=== PATIENT | female | born 1990 | race Caucasian/White ===

== ENCOUNTER 2016-03-25 13:26 | Emergency (ER) | payer OTHER ==
[2016-03-25 13:56] VITALS: BP 104/65
--- NOTE | 2016-03-25 13:58 | ER Document Report ---
ED Medical Screen (RME) - General Stated Complaint: SORE THROAT Notes: patient c/o sore throat for three days, still has her tonsils and states she has a h/o strep. dysphagia but tolerating PO I have greeted and performed a rapid initial assessment of this patient. A comprehensive ED assessment and evaluation of the patient, analysis of test results and completion of the medical decision making process will be conducted by additional ED providers. Physical Exam - Vital signs Vitals: Temp Pulse BP Pulse Ox 98.5 F 100 104/65 97 03/25/16 13:44 03/25/16 13:44 03/25/16 13:44 03/25/16 13:44 Course - Vital Signs Vital signs: Temp Pulse Resp BP Pulse Ox 98.5 F 100 104/65 97 03/25/16 13:44 03/25/16 13:44 03/25/16 13:44 03/25/16 13:44
--- NOTE | 2016-03-25 15:54 | ER Document Report ---
[id number], Parent TRAVEL OUTSIDE OF THE [place] IN LAST 30 DAYS: No - HPI Patient complains to provider of: sore throat Onset: Other - 3 days ago Onset/Duration: Sudden Quality of pain: Stabbing Associated symptoms: None. denies: Fever - General Chief Complaint: Sore Throat Stated Complaint: SORE THROAT Notes: Patient is a 25-year-old female presenting to the emergency department accompanied by her mother and daughter. Patient complains of sore throat onset 3 days ago progressively worsening. Patient states that she has been taking DayQuil, 800 mg of Motrin twice daily, and Tylenol. Patient has a history of strep throat, but that was 2 years ago. Patient denies fever, acid reflux, or any other symptoms at this time. (CARLO NICOLE) Past Medical History - General Information source: Patient - Social History Smoking Status: Never Smoker Chew tobacco use (# tins/day): No Frequency of alcohol use: None Drug Abuse: None Family History: Reviewed & Not Pertinent Patient has suicidal ideation: No Patient has homicidal ideation: No Renal/ Medical History: Denies: Hx Peritoneal Dialysis Review of Systems - Review of Systems Constitutional: No symptoms reported EENT: See HPI, Throat pain Cardiovascular: No symptoms reported Respiratory: No symptoms reported Gastrointestinal: No symptoms reported Genitourinary: No symptoms reported Female Genitourinary: No symptoms reported Musculoskeletal: No symptoms reported Skin: No symptoms reported Hematologic/Lymphatic: No symptoms reported Neurological/Psychological: No symptoms reported Physical Exam - Vital signs Vitals: Temp Pulse BP Pulse Ox 98.5 F 100 104/65 97 03/25/16 13:44 03/25/16 13:44 03/25/16 13:44 03/25/16 13:44 (CARLO NICOLE) (DWAYNE PUCKETT) - Notes Notes: GENERAL: Alert, interacts well. No acute distress. HEAD: Normocephalic, atraumatic. EYES: Pupils equal, round, and reactive to light. Extraocular movements intact. ENT: Oral mucosa moist, pharynx mildly erythematous, no swelling, exudates, or abscesses. NECK: Full range of motion. Supple. LUNGS: Clear to auscultation bilaterally, no wheezes, rales, or rhonchi. No respiratory distress. HEART: Regular rate and rhythm. No murmurs, gallops, or rubs. ABDOMEN: Soft, non-tender. Non-distended. EXTREMITIES: Moves all 4 extremities spontaneously. No edema, radial and dorsalis pedis pulses 2/4 bilaterally. NEUROLOGICAL: Alert and oriented x3. Normal speech. PSYCH: Normal affect, normal mood. SKIN: Warm, dry, normal turgor. No rashes or lesions noted. (CARLO NICOLE) Course - Re-evaluation Re-evalutation: 03/25/16 16:16 I personally performed the services described in the documentation, reviewed and edited the documentation which was dictated to my scribe in my presence, and it accurately records my words and actions. She presents emergency, to three-day history of sore throat. She says it hurts to swallow no difficulty breathing trismus stridor or drooling she is well- appearing nontoxic start that is negative posterior pharynx is red without lesions sores exudate or abscess. Trachea midline neck is supple lungs are clear. Recommend Tylenol every 4 hours Motrin every 6-8 hours ice liquids to call or throat we did do a strep culture if that's positive a total recall her back otherwise supportive care follow primary care physician to 3 days (DWAYNE PUCKETT) - Vital Signs Vital signs: Temp Pulse Resp BP Pulse Ox 98.5 F 100 104/65 97 03/25/16 13:44 03/25/16 13:44 03/25/16 13:44 03/25/16 13:44 (CARLO NICOLE) (DWAYNE PUCKETT) Discharge - Discharge Clinical Impression: Pharyngitis Qualifiers: Pharyngitis/tonsillitis etiology: unspecified etiology Qualified Code(s): J02.9 - Acute pharyngitis, unspecified Condition: Stable Disposition: HOME, SELF-CARE Instructions: Sore Throat ([facility]) Additional Instructions: Sore Throat Sore throats may be caused by viruses, bacteria, or fungi. Most are due to a virus, and must get better on their own. Bacterial sore throats, particularly those due to "strep," need treatment with antibiotics. If an antibiotic is prescribed, be sure to take the medication for a full 10 days. Failure to take the antibiotic can result in complications such as rheumatic fever. Sometimes, an injection of antibiotics is given instead of pills or liquid. This single "shot" is equal in effectiveness to the oral medication. To relieve symptoms, take acetaminophen for pain. Sip clear liquids frequently, or eat popsicles or ice chips. Anesthetic sprays or lozenges may help. Make sure the air in the room is not too dry. Avoid using decongestants or antihistamines. Call the doctor if there is no improvement in two days, or if you have difficulty breathing, increasing throat pain, high fever, rash, or frequent vomiting. Please use Tylenol every 4 Motrin every 6-8 follow-up with Dr. Christianson physician in 2-3 days return for increasing worsening or new symptoms Scribe Documentation - Scribe Written by Dell:: Carlo Nicole 03/25/2016 192 acting as scribe for :: Seamus
== END 2016-03-25 16:29 | disposition home or self-care (01) ==
LOC: ER 13:26
DX: J02.9 Acute pharyngitis, unspecified (principal)
CPT/HCPCS: 87070; 87880; 99283

== ENCOUNTER 2016-10-02 17:21 | Emergency (ER) | payer OTHER ==
[2016-10-02] MEDS ORDERED: ONDANSETRON 4 MG TAB.RAPDIS SL ONE (17:30)
[2016-10-02] MEDS ORDERED: OXYCODONE-ACETAMINOPHEN 5-325 MG TABLET PO ONE ×2 (17:30→20:59)
--- NOTE | 2016-10-02 17:32 | ER Document Report ---
ED Medical Screen (RME) - General Chief Complaint: Abdominal Pain Stated Complaint: ABDOMINAL PAIN Time Seen by Provider: 10/02/16 17:28 Mode of Arrival: Ambulatory Information source: Patient TRAVEL OUTSIDE OF THE [place] IN LAST 30 DAYS: No - HPI Patient complains to provider of: Abdominal pain/pelvic pain Onset: Last week Associated Symptoms: Nausea Notes: 10/02/16 17:32 Patient is a 26-year-old female presenting to the emergency room complaining of right lower quadrant/right pelvic pain is been going on for the past week and worsening today, she reports nausea but no vomiting, no fever, no urinary symptoms, no vaginal discharge, she reports a history of ruptured ovarian cyst in the past with similar symptoms but this is much worse today - Related Data Allergies/Adverse Reactions: No Known Allergies Allergy (Unverified 10/02/16 17:25) Past Medical History - Social History Frequency of alcohol use: None Drug Abuse: None Renal/ Medical History: Denies: Hx Peritoneal Dialysis Physical Exam - Vital signs Vitals: Temp Pulse Resp BP Pulse Ox 98.3 F 96 20 119/63 100 10/02/16 17:25 10/02/16 17:25 10/02/16 17:25 10/02/16 17:25 10/02/16 17:25 Course - Vital Signs Vital signs: Temp Pulse Resp BP Pulse Ox 98.3 F 96 20 119/63 100 10/02/16 17:25 10/02/16 17:25 10/02/16 17:25 10/02/16 17:25 10/02/16 17:25
[2016-10-02 17:56] LABS: ABSOLUTE EOSINOPHILS # (AUTO) 0.2 10^3/uL (0.0-0.6); ABSOLUTE LYMPHOCYTES (AUTO) 1.9 10^3/uL (0.5-4.7); ABSOLUTE MONOCYTES (AUTO) 0.5 10^3/uL (0.1-1.4); ABSOLUTE NEUT (AUTO) 4.5 10^3/uL (1.7-8.2); BASOPHILS % (AUTO) 0.4 % (0-2); EOSINOPHILS % (AUTO) 2.2 % (0-6); HEMATOCRIT 40.1 % (36.0-47.0); HEMOGLOBIN 13.6 g/dL (12.0-15.5); HGB HCT DIFFERENCE 0.7; LYMPHOCYTES % (AUTO) 26.5 % (13-45); MEAN CORPUSCULAR HEMOGLOBIN 30.9 pg (27.0-33.4); MEAN CORPUSCULAR HGB CONC 33.9 g/dL (32.0-36.0); MEAN CORPUSCULAR VOLUME 91 fl (80-97); MONOCYTES % (AUTO) 6.7 % (3-13); RED BLOOD COUNT 4.39 10^6/uL (3.72-5.28); RED CELL DISTRIBUTION WIDTH 13.4 % (11.5-14.0); SEGMENTED NEUTROPHILS % (AUTO) 64.2 % (42-78)
[2016-10-02 18:06] LABS: AMORPHOUS SEDIMENT,URINE TRACE /HPF; APPEARANCE,URINE SLIGHTLY-CLOUDY; BILIRUBIN,URINE NEGATIVE (NEGATIVE); GLUCOSE, URINE NEGATIVE (NEGATIVE); KETONES,URINE NEGATIVE (NEGATIVE); LEUKOCYTE ESTERASE,URINE NEGATIVE (NEGATIVE); NITRITE,URINE NEGATIVE (NEGATIVE); PROTEIN,URINE NEGATIVE (NEGATIVE); URINE SPECIFIC GRAVITY 1.016
--- NOTE | 2016-10-02 18:15 | ER Document Report ---
ED General - General Chief Complaint: Abdominal Pain Stated Complaint: ABDOMINAL PAIN Time Seen by Provider: 10/02/16 17:28 Mode of Arrival: Ambulatory Information source: Patient Notes: 26-year-old female presents with complaints of right lower quadrant down pain of one-week duration has worsened since. Patient denies any fevers or chills admits nausea vomiting TRAVEL OUTSIDE OF THE [place] IN LAST 30 DAYS: No - HPI Onset: Last week Onset/Duration: Persistent, Worse Quality of pain: Achy, Sharp Severity: Mild Pain Level: 2 Associated symptoms: Other Exacerbated by: Movement Relieved by: Denies Similar symptoms previously: No Recently seen / treated by doctor: No - Related Data Allergies/Adverse Reactions: No Known Allergies Allergy (Unverified 10/02/16 17:25) Past Medical History - General Information source: Patient - Social History Smoking Status: Former Smoker Cigarette use (# per day): No Chew tobacco use (# tins/day): No Smoking Education Provided: No Frequency of alcohol use: None Drug Abuse: None Family History: Reviewed & Not Pertinent Renal/ Medical History: Denies: Hx Peritoneal Dialysis Review of Systems - Review of Systems Notes: REVIEW OF SYSTEMS: CONSTITUTIONAL : Denies fever, chills, or sweats. Denies recent illness. EENT: Denies eye, ear, throat, or mouth pain or symptoms. Denies nasal or sinus congestion or discharge. Denies throat, tongue, or mouth swelling or difficulty swallowing. CARDIOVASCULAR: Denies chest pain. Denies palpitations or racing or irregular heart beat. Denies ankle edema. RESPIRATORY: Denies cough, cold, or chest congestion. Denies shortness of breath, difficulty breathing, or wheezing. GASTROINTESTINAL: Right lower quadrant abdominal pain GENITOURINARY: Denies difficulty urinating, painful urination, burning, frequency, blood in urine, or discharge. FEMALE GENITOURINARY: Denies vaginal bleeding, heavy or abnormal periods, irregular periods. Denies vaginal discharge or odor. MUSCULOSKELETAL: Denies back or neck pain or stiffness. Denies joint pain or swelling. SKIN: Denies rash, lesions or sores. HEMATOLOGIC : Denies easy bruising or bleeding. LYMPHATIC: Denies swollen, enlarged glands. NEUROLOGICAL: Denies confusion or altered mental status. Denies passing out or loss of consciousness. Denies dizziness or lightheadedness. Denies headache. Denies weakness or paralysis or loss of use of either side. Denies problems with gait or speech. Denies sensory loss, numbness, or tingling. Denies seizures. PSYCHIATRIC: Denies anxiety or stress. Denies depression, suicidal ideation, or homicidal ideation. ALL OTHER SYSTEMS REVIEWED AND NEGATIVE. PHYSICAL EXAMINATION: GENERAL: Well-appearing, well-nourished and in no acute distress. HEAD: Atraumatic, normocephalic. EYES: Pupils equal round and reactive to light, extraocular movements intact, conjunctiva are normal. ENT: Nares patent, oropharynx clear without exudates. Moist mucous membranes. NECK: Normal range of motion, supple without lymphadenopathy LUNGS: Breath sounds clear to auscultation bilaterally and equal. No wheezes rales or rhonchi. HEART: Regular rate and rhythm without murmurs ABDOMEN: Soft, tender with guarding of the right lower quadrant Female : deferred Musculoskeletal: Normal range of motion, no pitting or edema. No cyanosis. NEUROLOGICAL: Cranial nerves grossly intact. Normal speech, normal gait. Normal sensory, motor exams PSYCH: Normal mood, normal affect. SKIN: Warm, Dry, normal turgor, no rashes or lesions noted. Dictation was performed using [employer] voice recognition software Physical Exam - Vital signs Vitals: Temp Pulse Resp BP Pulse Ox 98.3 F 96 20 119/63 100 10/02/16 17:25 10/02/16 17:25 10/02/16 17:25 10/02/16 17:25 10/02/16 17:25 Course - Re-evaluation Re-evalutation: 10/02/16 19:06 Labwork notes no significant abnormality CT has been ordered 10/02/16 20:[address] noted no significant abnormality except for a cyst. This was evaluated on ultrasound given her pain. No torsion is noted. Patient will be given follow-up with women's health is otherwise well-appearing no distress. After performing a Medical Screening Examination, I estimate there is LOW risk for ACUTE APPENDICITIS, BOWEL OBSTRUCTION, ACUTE CHOLECYSTITIS, PERFORATED DIVERTICULITIS, INCARCERATED HERNIA, PANCREATITIS, PELVIC INFLAMMATORY DISEASE, PERFORATED ULCER, ECTOPIC , or TUBO-OVARIAN ABSCESS, thus I consider the discharge disposition reasonable. Also, there is no evidence or peritonitis , sepsis, or toxicity. I have reevaluated this patient multiple times and no significant life threatening changes are noted. The patient and I have discussed the diagnosis and risks, and we agree with discharging home with close follow-up with the understanding that symptoms and presentations can change. We also discussed returning to the Emergency Department immediately if new or worsening symptoms occur. We have discussed the symptoms which are most concerning (e.g., bloody stool, fever, changing or worsening pain, vomiting) that necessitate immediate return. - Vital Signs Vital signs: Temp Pulse Resp BP Pulse Ox 98.3 F 96 20 119/63 100 10/02/16 17:25 10/02/16 17:25 10/02/16 17:25 10/02/16 17:25 10/02/16 17:25 - Laboratory Result Diagrams: 10/02/16 17:40 10/02/16 17:40 Laboratory results interpreted by me: 10/02/16 17:40 Urine Urobilinogen 4.0 H Urine Ascorbic Acid 40 H - Diagnostic Test Radiology reviewed: Image reviewed, Reports reviewed Discharge - Discharge Clinical Impression: RLQ abdominal pain Ovarian cyst Qualifiers: Laterality: right Qualified Code(s): N83.201 - Unspecified ovarian cyst, right side Condition: Stable Disposition: HOME, SELF-CARE Instructions: Abdominal Pain ([facility]) Prescriptions: Metoclopramide HCl [Reglan 10 mg Tablet] 1 - 2 tab PO ASDIR PRN #25 tablet PRN Reason: Oxycodone HCl/Acetaminophen [Percocet 5-325 mg Tablet] 1 - 2 tab PO Q4H PRN #15 tablet PRN Reason: Referrals: [facility] [Provider Group] - Follow up tomorrow
[2016-10-02 18:16] LABS: ALANINE AMINOTRANSFERASE 29 U/L (9-52); ALBUMIN 3.9 g/dL (3.5-5.0); ALKALINE PHOSPHATASE 47 U/L (38-126); ANION GAP 9 (5-19); ASPARTATE AMINO TRANSFERASE 21 U/L (14-36); BILIRUBIN,DIRECT 0.3 mg/dL (0.0-0.4); BILIRUBIN,TOTAL 0.5 mg/dL (0.2-1.3); BLOOD UREA NITROGEN 17 mg/dL (7-20); CALCIUM 9.5 mg/dL (8.4-10.2); CARBON DIOXIDE 28 mmol/L (22-30); CHLORIDE 104 mmol/L (98-107); GLUCOSE 91 mg/dL (75-110); LIPASE 130.9 U/L (23-300); POTASSIUM 4.9 mmol/L (3.6-5.0); SODIUM 141.3 mmol/L (137-145); TOTAL PROTEIN 6.3 g/dL (6.3-8.2)
[2016-10-02] MEDS ORDERED: MORPHINE SULFATE 10 MG/ML INJ IV ONE (18:19)
[2016-10-02] MEDS ORDERED: NORMAL SALINE 1000 ML 1,000 ML IV ONE (18:20)
[2016-10-02] MEDS ORDERED: ONDANSETRON HCL INJ/PF 4 MG/2 ML SDV IV ONE (18:20)
--- NOTE | 2016-10-02 19:21 | RADIOLOGY REPORT (SQ) ---
EXAM DESCRIPTION: CT ABD/PELVIS WITH IV ONLY COMPLETED DATE/TIME: 10/02/2016 7:01 pm REASON FOR STUDY: RLQ pain COMPARISON: None. TECHNIQUE: CT scan of the abdomen and pelvis performed using helical scanning technique with dynamic intravenous contrast injection. No oral contrast. Images reviewed with lung, soft tissue, and bone windows. Reconstructed coronal and sagittal MPR images reviewed. Delayed images for evaluation of the urinary system also acquired. All images stored on PACS. All CT scanners at this facility use dose modulation, iterative reconstruction, and/or weight based d osing when appropriate to reduce radiation dose to as low as reasonably achievable (ALARA). [facility]: Dose Right [facility]: CareDose [facility]: Dose Right [facility]: Teradose 4D [facility]: Smart TransGenRx CONTRAST TYPE AND DOSE: Not provided. RENAL FUNCTION: None required. The patient is less than 50 years old. RADIATION DOSE: Up-to-date CT equipment and radiation dose reduction techniques were employed. CTDIv ol: 6.0 - 8.4 mGy. DLP: 719 mGy-cm.. LIMITATIONS: No clinical information provided. FINDINGS: LOWER CHEST: No significant findings. No nodules or infiltrates. LIVER: Normal size. No masses. No dilated ducts. SPLEEN: Normal size. No focal lesions. PANCREAS: No masses. No significant calcifications. No adjacent inflammation or peripancreatic fluid collections. Pancreatic duct not dilated. GALLBLADDER: No identified stones by CT criteria. No inflammatory changes to suggest cholecystitis. ADRENAL GLANDS: No significant masses or asymmetry. RIGHT KIDNEY AND URETER: No solid masses. No significant calcification. No hydronephrosis or hydroure ter. LEFT KIDNEY AND URETER: No solid masses. No significant calcification. No hydronephrosis or hydrouret er. AORTA AND VESSELS: No aneurysm. No dissection. Renal arteries, SMA, celiac without stenosis. RETROPERITONEUM: No retroperitoneal adenopathy, hemorrhage or masses. BOWEL AND PERITONEAL CAVITY: Large amount of stool throughout the colon. No mechanical bowel obstruc tion, ascites or abnormal gas. APPENDIX: Normal. PELVIS: 3 cm right adnexal region cyst. Doubtful clinical significance unless the patient has right yayo pelvic symptoms. Trace free fluid. IUD within the uterus. ABDOMINAL WALL: No masses. No hernias. BONES: No significant or acute findings. OTHER: No other significant finding. IMPRESSION: 1. No overtly worrisome findings in the abdomen or pelvis. Findings include constipatio n and a right ovarian cyst without suspicious features. The ovarian cyst would typically need no fur ther imaging followup unless the patient has right pelvic symptoms. If so, pelvic ultrasound. TECHNICAL DOCUMENTATION: JOB ID: [id number] Quality ID # [id number]: Final reports with documentation of one or more dose reduction techniques (e.g., Au tomated exposure control, adjustment of the mA and/or kV according to patient size, use of iterative reconstruction technique) 2010 [employer]- All Rights Reserved
--- NOTE | 2016-10-02 20:36 | RADIOLOGY REPORT (SQ) ---
EXAM DESCRIPTION: U/S NON OB PEL TV W/DOPPLER COMPLETED DATE/TIME: 10/02/2016 8:22 pm REASON FOR STUDY: RLQ pain COMPARISON: None. TECHNIQUE: Dynamic and static grayscale images acquired of the pelvis via transvaginal approach and recorded on PACS. Additional selected color Doppler and spectral images recorded. LIMITATIONS: None. FINDINGS: UTERUS: Contour normal. No mass. ENDOMETRIAL STRIPE: No focal or generalized thickening. No masses. CERVIX: No nabothian cysts. RIGHT OVARY: No solid mass. 3.3 cm simple appearing cyst. RIGHT OVARY DOPPLER: Normal arterial vascular flow without evidence for torsion. LEFT OVARY: Ovary not visualized. LEFT OVARY DOPPLER: Ovary not visualized. FREE FLUID: None noted. OTHER: No other significant finding. MEASUREMENTS: UTERUS: 6.2 x 5.7 x 3.7 cm ENDOMETRIAL STRIPE: [address] RIGHT OVARY: 3.4 x 2.3 x 2.8 cm LEFT OVARY: Not visualized. IMPRESSION: No ovarian torsion evident. Left ovary not visualized. Right ovarian cyst as seen on C T. TECHNICAL DOCUMENTATION: JOB ID: [id number] [employer]- All Rights Reserved
[2016-10-02 21:27] VITALS: BP 107/66
== END 2016-10-02 21:27 | disposition home or self-care (01) ==
LOC: ER 17:21
DX: N83.201 Unspecified ovarian cyst, right side (principal); R10.31 Right lower quadrant pain; Z87.891 Personal history of nicotine dependence
CPT/HCPCS: 99284; 96374; 96375; 36415; 83690; 84703; 85025; 80053; 81001; 76830; 93976; 74177; S0119; J2270; J2405; J7030

== ENCOUNTER 2016-10-12 15:49 | Emergency (ER) | payer OTHER ==
[2016-10-12 15:55] VITALS: BP 114/66
--- NOTE | 2016-10-12 16:15 | ER Document Report ---
ED General - General Chief Complaint: Abdominal Pain Stated Complaint: ABDOMINAL PAIN Time Seen by Provider: 10/12/16 16:09 Notes: Patient complains of right lower quadrant pain. She states she is here similar pain about 1-1/2 weeks ago. She states the pain now radiates into her right thigh. It is worse with movement and better with rest. It is sharp. It is constant and moderate to severe. She states she was diagnosed with a right ovarian cyst on her last visit. She states she has seen her family doctor and is getting a referral to gynecology. She denies any diarrhea or vaginal bleeding. No problems with urination. She has had decreased appetite but no fevers. Review of records show that the patient had a CT scan and ultrasound done approximate one half weeks ago which revealed a right ovarian cyst. TRAVEL OUTSIDE OF THE [place] IN LAST 30 DAYS: No - Related Data Allergies/Adverse Reactions: No Known Allergies Allergy (Unverified 10/12/16 15:52) Home Medications: Current Home Medications Paroxetine HCl [Paxil 20 mg Tablet] 60 mg PO DAILY 10/12/16 [History] Past Medical History - General Information source: Patient - Social History Smoking Status: Former Smoker Chew tobacco use (# tins/day): No Frequency of alcohol use: None Drug Abuse: None Family History: Reviewed & Not Pertinent Patient has suicidal ideation: No Renal/ Medical History: Denies: Hx Peritoneal Dialysis Past Surgical History: Reports: Hx Gynecologic Surgery - D&C - Immunizations Hx Diphtheria, Pertussis, Tetanus Vaccination: Yes Review of Systems - Review of Systems Constitutional: Malaise, Weakness. denies: Chills, Fever Gastrointestinal: Abdominal pain. denies: Diarrhea, Vomiting Genitourinary: denies: Burning, Dysuria, Discharge -: Yes All other systems reviewed and negative Physical Exam - Vital signs Vitals: Temp Pulse Resp BP Pulse Ox 98.6 F 77 16 114/66 99 10/12/16 15:53 10/12/16 15:53 10/12/16 15:53 10/12/16 15:53 10/12/16 15:53 Interpretation: Normal - General General appearance: Appears well, Alert - HEENT Head: Normocephalic, Atraumatic Eyes: Normal Pupils: PERRL - Respiratory Respiratory status: No respiratory distress Chest status: Nontender Breath sounds: Normal Chest palpation: Normal - Cardiovascular Rhythm: Regular Heart sounds: Normal auscultation Murmur: No - Abdominal Inspection: Normal Distension: No distension Bowel sounds: Normal Tenderness: Tender - Patient has some right lower quadrant tenderness to palpation. No rebound or guarding. Organomegaly: No organomegaly - Back Back: Normal, Nontender - Extremities General upper extremity: Normal inspection, Nontender, Normal color, Normal ROM , Normal temperature General lower extremity: Normal inspection, Nontender, Normal color, Normal ROM , Normal temperature, Normal weight bearing. No: Beata's sign - Neurological Neuro grossly intact: Yes Cognition: Normal Orientation: AAOx4 Ross Coma Scale Eye Opening: Spontaneous [place] Coma Scale Verbal: Oriented Ross Coma Scale Motor: Obeys Commands Ross Coma Scale Total: 15 Speech: Normal Motor strength normal: LUE, RUE, LLE, RLE Sensory: Normal - Psychological Associated symptoms: Normal affect, Normal mood - Skin Skin Temperature: Warm Skin Moisture: Dry Skin Color: Normal Course - Re-evaluation Re-evalutation: 10/12/16 16:12 Patient presents with right lower quadrant pain. She states she was here a week and half ago and this pain is similar. At that time she had CT scan and ultrasound which revealed a right ovarian cyst. At this time I do not believe that the patient would benefit from further radiation from radiological studies. I also do not believe that any type of lab work or urinalysis would be beneficial based upon her symptoms. I think patient can benefit most from pain control to she can follow-up with gynecology. Appendicitis was obviously considered and I discussed this with the patient but at this time I do not feel that further radiation from a repeat CT scan is appropriate. 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 Prescriptions: Hydrocodone/Acetaminophen [Adrian 5-325 mg Tablet] 1 tab PO Q6 PRN #10 tablet PRN Reason:
== END 2016-10-12 16:21 | disposition home or self-care (01) ==
LOC: ER 15:49
DX: N83.201 Unspecified ovarian cyst, right side (principal); R53.81 Other malaise; R10.31 Right lower quadrant pain; R53.1 Weakness; Z87.891 Personal history of nicotine dependence
CPT/HCPCS: 99284

== ENCOUNTER 2016-10-25 13:26 | Emergency (ER) | payer OTHER ==
[2016-10-25] MEDS ORDERED: ONDANSETRON 4 MG TAB.RAPDIS PO ONE (14:19)
[2016-10-25] MEDS ORDERED: IBUPROFEN 600 MG TABLET PO ONE (14:27)
--- NOTE | 2016-10-25 14:35 | ER Document Report ---
ED GI/ - General Chief Complaint: Abdominal Pain Stated Complaint: PAINFUL URINATION Time Seen by Provider: 10/25/16 13:52 Mode of Arrival: Wheelchair Information source: Patient Notes: 26-year-old female presents to ED for severe pelvic pain with vaginal discharge pain radiating up to her abdomen and pain with sexual intercourse. She states she has had the vaginal discharge for at least 2 weeks it is pale green in color. She states she made an appointment with her doctor but has not been able to get in to see them. TRAVEL OUTSIDE OF THE [place] IN LAST 30 DAYS: No - HPI Patient complains to provider of: Pelvic pain, Vaginal discharge Onset: Other - 2-3 weeks Timing/Duration: Persistent, Worse Quality of pain: Sharp, Throbbing Severity at maximum: Moderate Severity in ED: Moderate Pain Level: 4 Location: Right flank, Low back, Pelvis, Vaginal Vaginal bleeding (Compared to normal period): None Associated symptoms: Odor, Vaginal discharge, Other - Pelvic pain right flank pain vaginal discharge pain with intercourse Exacerbated by: Movement, Walking, Other - Sexual intercourse Relieved by: Denies Similar symptoms previously: Yes Recently seen / treated by doctor: Yes - Related Data Allergies/Adverse Reactions: No Known Allergies Allergy (Unverified 10/12/16 15:52) Past Medical History - General Information source: Patient - Social History Smoking Status: Never Smoker Cigarette use (# per day): No Chew tobacco use (# tins/day): No Smoking Education Provided: No Frequency of alcohol use: None Drug Abuse: Marijuana Family History: Reviewed & Not Pertinent Patient has suicidal ideation: No Patient has homicidal ideation: No EENT Medical History: Reports: None Neurological Medical History: Reports: None Endocrine Medical History: Reports: None Renal/ Medical History: Reports: Hx Ovarian Cysts Malignancy Medical History: Reports: None GI Medical History: Reports: None Musculoskeltal Medical History: Reports None Skin Medical History: Reports None Psychiatric Medical History: Reports: Hx Anxiety, Hx Depression Traumatic Medical History: Reports: None Infectious Medical History: Reports: None Past Surgical History: Reports: Hx Dilation and Curettage - Immunizations Immunizations up to date: Yes Hx Diphtheria, Pertussis, Tetanus Vaccination: Yes Review of Systems - Review of Systems Constitutional: No symptoms reported EENT: No symptoms reported Cardiovascular: No symptoms reported Respiratory: No symptoms reported Gastrointestinal: No symptoms reported Genitourinary: Burning, Flank pain Female Genitourinary: Vaginal discharge, Vaginal odor, Painful intercourse Musculoskeletal: No symptoms reported Skin: No symptoms reported Hematologic/Lymphatic: No symptoms reported Neurological/Psychological: No symptoms reported -: Yes All other systems reviewed and negative Physical Exam - Vital signs Vitals: Temp Pulse Resp BP Pulse Ox 98.3 F 78 16 106/57 L 99 10/25/16 13:51 10/25/16 13:51 10/25/16 13:51 10/25/16 13:51 10/25/16 13:51 Interpretation: Normal - General General appearance: Appears well, Alert - HEENT Head: Normocephalic, Atraumatic Eyes: Normal Pupils: PERRL - Respiratory Respiratory status: No respiratory distress Chest status: Nontender Breath sounds: Normal Chest palpation: Normal - Cardiovascular Rhythm: Regular Heart sounds: Normal auscultation Murmur: No - Abdominal Inspection: Normal Distension: No distension Bowel sounds: Normal Tenderness: Nontender Organomegaly: No organomegaly - Genitourinary External exam: Normal Speculum exam: Cervix closed, Vaginal discharge - Greenish yellow Vaginal bleeding: None Bimanuel exam: Cervical motion tender, Adnexal tenderness - Back Back: Normal, Nontender - Extremities General upper extremity: Normal inspection, Nontender, Normal color, Normal ROM , Normal temperature General lower extremity: Normal inspection, Nontender, Normal color, Normal ROM , Normal temperature, Normal weight bearing. No: Beata's sign - Neurological Neuro grossly intact: Yes Cognition: Normal Orientation: AAOx4 Ross Coma Scale Eye Opening: Spontaneous [place] Coma Scale Verbal: Oriented [place] Coma Scale Motor: Obeys Commands [place] Coma Scale Total: 15 Speech: Normal Motor strength normal: LUE, RUE, LLE, RLE Sensory: Normal - Psychological Associated symptoms: Normal affect, Normal mood - Skin Skin Temperature: Warm Skin Moisture: Dry Skin Color: Normal Course - Re-evaluation Re-evalutation: 10/25/16 16:23 Discussed ultrasound and lab results with patient. Patient was given azithromycin Rocephin and Flagyl in the emergency room as well as Zofran and ibuprofen. Patient instructed to follow-up with [facility]. 10/25/16 16:26 Results of GC and Chlamydia are negative patient was informed before discharge. - Vital Signs Vital signs: Temp Pulse Resp BP Pulse Ox 98.3 F 78 16 106/57 L 99 10/25/16 13:51 10/25/16 13:51 10/25/16 13:51 10/25/16 13:51 10/25/16 13:51 - Laboratory Laboratory results interpreted by me: 10/25/16 14:30 Ur Leukocyte Esterase TRACE H Urine Ascorbic Acid 40 H - Diagnostic Test Radiology reviewed: Image reviewed, Reports reviewed Discharge - Discharge Clinical Impression: Bacterial vaginitis Vaginitis Qualifiers: Chronicity: acute Qualified Code(s): N76.0 - Acute vaginitis Ovarian cyst Qualifiers: Laterality: right Qualified Code(s): N83.201 - Unspecified ovarian cyst, right side Condition: Stable Disposition: HOME, SELF-CARE Instructions: Family Physicians / Practices Additional Instructions: VAGINITIS: Your exam shows that you have vaginitis, a vaginal infection. The infection can be caused by a many different organisms, including trichomonas or Gardnerella. The usual symptoms are vaginal irritation and discharge. The treatment is usually antibiotics such as Flagyl. Laboratory tests can determine which germ is responsible. Use the medication as prescribed. Because this infection can be transmitted sexually, your sexual partner may need to be checked and treated also. If your physician has not discussed this with you, please check before resuming sexual relations. If a culture shows gonorrhea or chlamydia, the infection must be reported to the health department. Call the doctor if you develop pelvic pain, fever, or problems with urination, or if you don't improve as expected. VAGINOSIS, BACTERIAL: Your exam shows you have bacterial vaginosis. This condition is due to an overgrowth of bacteria in the vagina. Symptoms may include vaginal itching or pain, a smelly discharge, and sometimes burning with urination. Normally this is not transmitted by sexual contact. Vaginosis can be treated with oral or topical antibiotics. Metronidazole ( Flagyl) pills are usually effective. Topical vaginal creams include Cleocin and Metro-Gel. You should avoid sexual contact until your symptoms are all better. Call the doctor if you develop pelvic pain, fever, or problems with urination, or if you don't improve as expected. Ovarian Cyst Your examination shows the presence of an ovarian cyst. This is a ball of fluid attached to the ovary. Ovarian cysts in women of child-bearing age are usually innocent. However, the cyst may cause pain when it grows or bursts. An innocent ovarian cyst will usually go away by itself. When the cyst becomes painful, you should rest. Pain medication may be required. Some women find a hot water bottle soothing. The pain usually resolves within one or two days. After menopause, an ovarian cyst may mean a tumor, and requires more aggressive evaluation -- usually surgery is recommended to remove or biopsy the cyst. A very large cyst requires evaluation at any age. Most cysts (even the innocent ones) require follow-up examination. Call the doctor or return at any time if the pain increases significantly, if you become faint, or if you experience vaginal bleeding. CEPHALOSPORINS: An antibiotic of the cephalosporin class has been prescribed. This type of antibiotic covers a wide variety of infections, including those of the skin, lungs, middle ear, and urinary tract. This antibiotic is somewhat similar to the penicillin family. In rare cases , a person who is allergic to penicillin will also be allergic to this medication. If you have had a severe allergic reaction to penicillin, and have not taken this antibiotic since that time, notify your doctor. Antibiotics which cover many germs ("broad spectrum" antibiotics) are more likely to cause diarrhea or "yeast" infections. Women prone to vaginal yeast problems may suffer an attack after taking this antibiotic. In infants, oral thrush (white spots "stuck" on the cheek) or yeast diaper rash may result. See your doctor if these problems occur. Call the doctor at once if you develop hives, itching, shortness of breath , or lightheadedness. AZITHROMYCIN: Azithromycin (Zithromax) is a broad spectrum antibiotic in the same class as erythromycin. It can treat a variety of bacterial infections, but is most frequently used for respiratory infections. Azithromycin is extremely long-lasting. It accumulates in body tissues and continues to kill bacteria for many days. In order to improve absorption, Azithromycin should be taken at least one hour before or two hours after a meal. It does not have the same strong tendency to upset the stomach as erythromycin and is usually very well tolerated. Patients who have had a rash or other true allergic reactions to erythromycin should not take this medication. Call if you develop gastrointestinal distress, severe diarrhea, rash, hives, itching, or shortness of breath. METRONIDAZOLE: Metronidazole (Flagyl) has been prescribed. This medication is used to kill a type of bacteria called anaerobes, and protozoan parasites such as trichomonas and Giardia. Flagyl often causes a metallic taste in the mouth and mild nausea. Do not use alcohol in any form with Flagyl (including alcohol in medication elixirs). Flagyl interacts with alcohol to cause flushing, palpitations, headache, stomach cramps, and vomiting. Do not use Flagyl if you are taking Antabuse (disulfiram). Call the doctor at once if you develop rash, shortness of breath, itching, or lightheadedness. Ibuprofen Ibuprofen is an excellent, safe drug for pain control. In addition, it has potent antiinflammatory effects which are beneficial, especially in the treatment of injuries, arthritis, or tendonitis. It's best to take ibuprofen with food. Persons with ulcer disease or allergy to aspirin should notify their physician of this before taking ibuprofen. Take the medication exactly as prescribed. Don't take additional doses unless instructed to do so by your doctor. If you develop wheezing, shortness of breath, hives, faintness, stomach pain, vomiting, or dark black stools, return for re-evaluation at once. FOLLOW-UP CARE: If you have been referred to a physician for follow-up care, call the physician s office for an appointment as you were instructed or within the next two days. If you experience worsening or a significant change in your symptoms, notify the physician immediately or return to the Emergency Department at any time for re-evaluation. Referrals: RAULNO [Primary Care Provider] - Follow up as needed [facility] [Provider Group] - Follow up as needed
[2016-10-25 14:51] LABS: APPEARANCE,URINE CLEAR; BILIRUBIN,URINE NEGATIVE (NEGATIVE); GLUCOSE, URINE NEGATIVE (NEGATIVE); KETONES,URINE NEGATIVE (NEGATIVE); LEUKOCYTE ESTERASE,URINE TRACE (NEGATIVE); NITRITE,URINE NEGATIVE (NEGATIVE); PROTEIN,URINE NEGATIVE (NEGATIVE); URINE SPECIFIC GRAVITY 1.031; UROBILINOGEN,URINE NEGATIVE mg/dL (<2.0)
[2016-10-25] MEDS ORDERED: ACETAMINOPHEN 325 MG TABLET PO ONE (15:30)
--- NOTE | 2016-10-25 15:33 | RADIOLOGY REPORT (SQ) ---
EXAM DESCRIPTION: U/S NON-OB PELVIS TV W/O DOP COMPLETED DATE/TIME: 10/25/2016 3:20 pm REASON FOR STUDY: vaginal discharge and pelvic pain COMPARISON: 10/02/2016 TECHNIQUE: Dynamic and static grayscale images acquired of the pelvis via transvaginal approach and recorded on PACS. Additional selected color Doppler and spectral images recorded. LIMITATIONS: None. FINDINGS: UTERUS: Contour normal. No mass. ENDOMETRIAL STRIPE: No focal or generalized thickening. No masses. CERVIX: 2.3 cm. No nabothian cysts. RIGHT OVARY: There is a hypoechoic area measuring 2.1 x 1.8 x 3 cm. RIGHT OVARY DOPPLER: Normal arterial vascular flow without evidence for torsion. LEFT OVARY: No abnormal masses. LEFT OVARY DOPPLER: Normal arterial vascular flow without evidence for torsion. FREE FLUID: None noted. OTHER: An IUD is present. MEASUREMENTS: UTERUS: 7.3 x 4.8 x 4.1 cm. ENDOMETRIAL STRIPE: 8 mm. RIGHT OVARY: 2.6 x 2.6 x 3.6 cm. LEFT OVARY: 2.7 x 1.8 x 1.4 cm. IMPRESSION: There is a small right ovarian cyst. The study is otherwise unremarkable. TECHNICAL DOCUMENTATION: JOB ID: [id number] [employer]- All Rights Reserved
[2016-10-25] MEDS ORDERED: CEFTRIAXONE INJ 250 MG VIAL IM ONE (15:55)
[2016-10-25] MEDS ORDERED: LIDOCAINE 1% INJ-PF (10 MG/ML) 30 ML SDV INJ ONE (15:55)
[2016-10-25] MEDS ORDERED: AZITHROMYCIN 250 MG TABLET PO ONE (15:55)
[2016-10-25] MEDS ORDERED: METRONIDAZOLE 500 MG TABLET PO ONE (15:56)
[2016-10-25 16:09] LABS: CHLAM PCR NOT DETECTED (NOT DETECT)
[2016-10-25 16:32] VITALS: BP 115/66
== END 2016-10-25 16:32 | disposition home or self-care (01) ==
LOC: ER 13:26
DX: N76.0 Acute vaginitis (principal); B96.89 Other specified bacterial agents as the cause of diseases classified elsewhere; N83.201 Unspecified ovarian cyst, right side; R10.2 Pelvic and perineal pain; N94.10 Unspecified dyspareunia
CPT/HCPCS: 99284; 96372; 51701; 87210; 81025; 81001; 87491; 87591; 76830; S0119; J3490; J0696

== ENCOUNTER 2016-11-08 18:41 | Emergency (ER) | payer OTHER ==
--- NOTE | 2016-11-08 19:41 | ER Document Report ---
ED Medical Screen (RME) - General Chief Complaint: Abdominal Pain Stated Complaint: ABDOMINAL PAIN,VOMITING, FEVER Time Seen by Provider: 11/08/16 19:41 Mode of Arrival: Ambulatory Information source: Patient Notes: This is a 26-year-old female who presents to the emergency room with right lower abdominal pain for 2 days. Patient states she did have fever of 101.6. She does state she has been taking ibuprofen for the pain. TRAVEL OUTSIDE OF THE [place] IN LAST 30 DAYS: No - Related Data Allergies/Adverse Reactions: No Known Allergies Allergy (Verified 11/08/16 18:44) Past Medical History - Social History Chew tobacco use (# tins/day): No Frequency of alcohol use: None Drug Abuse: None Renal/ Medical History: Reports: Hx Ovarian Cysts. Denies: Hx Peritoneal Dialysis Psychiatric Medical History: Reports: Hx Anxiety, Hx Depression Past Surgical History: Reports: Hx Dilation and Curettage, Hx Gynecologic Surgery - D&C - Immunizations Immunizations up to date: Yes Hx Diphtheria, Pertussis, Tetanus Vaccination: Yes History of Influenza Vaccine for 11/2016 - 04/2017 Season: No Physical Exam - Vital signs Vitals: Temp Pulse Resp BP Pulse Ox 98.6 F 86 18 110/73 99 11/08/16 18:45 11/08/16 18:45 11/08/16 18:45 11/08/16 18:45 11/08/16 18:45 Course - Vital Signs Vital signs: Temp Pulse Resp BP Pulse Ox 98.6 F 86 18 110/73 99 11/08/16 18:45 11/08/16 18:45 11/08/16 18:45 11/08/16 18:45 11/08/16 18:45
[2016-11-08] MEDS ORDERED: ONDANSETRON HCL INJ/PF 4 MG/2 ML SDV IV ONE (19:42)
[2016-11-08] MEDS ORDERED: NORMAL SALINE 1000 ML 1,000 ML IV PRN (19:42)
[2016-11-08 20:17] LABS: ABSOLUTE BASOPHILS # (AUTO) 0.1 10^3/uL (0.0-0.2); ABSOLUTE EOSINOPHILS # (AUTO) 0.1 10^3/uL (0.0-0.6); ABSOLUTE LYMPHOCYTES (AUTO) 2.5 10^3/uL (0.5-4.7); ABSOLUTE MONOCYTES (AUTO) 0.6 10^3/uL (0.1-1.4); ABSOLUTE NEUT (AUTO) 4.8 10^3/uL (1.7-8.2); BASOPHILS % (AUTO) 0.7 % (0-2); EOSINOPHILS % (AUTO) 1.7 % (0-6); HEMATOCRIT 40.5 % (36.0-47.0); HEMOGLOBIN 14.4 g/dL (12.0-15.5); HGB HCT DIFFERENCE 2.7; LYMPHOCYTES % (AUTO) 30.9 % (13-45); MEAN CORPUSCULAR HEMOGLOBIN 31.3 pg (27.0-33.4); MEAN CORPUSCULAR HGB CONC 35.5 g/dL (32.0-36.0); MEAN CORPUSCULAR VOLUME 88 fl (80-97); MONOCYTES % (AUTO) 6.9 % (3-13); RED BLOOD COUNT 4.59 10^6/uL (3.72-5.28); SEGMENTED NEUTROPHILS % (AUTO) 59.8 % (42-78); WHITE BLOOD COUNT 8.1 10^3/uL (4.0-10.5)
[2016-11-08 20:19] LABS: APPEARANCE,URINE CLEAR; BILIRUBIN,URINE NEGATIVE (NEGATIVE); GLUCOSE, URINE NEGATIVE (NEGATIVE); KETONES,URINE NEGATIVE (NEGATIVE); LEUKOCYTE ESTERASE,URINE NEGATIVE (NEGATIVE); NITRITE,URINE NEGATIVE (NEGATIVE); PROTEIN,URINE NEGATIVE (NEGATIVE); URINE SPECIFIC GRAVITY 1.017; UROBILINOGEN,URINE NEGATIVE mg/dL (<2.0)
[2016-11-08 20:51] LABS: ALANINE AMINOTRANSFERASE 34 U/L (9-52); ALBUMIN 4.6 g/dL (3.5-5.0); ALKALINE PHOSPHATASE 51 U/L (38-126); ANION GAP 10 (5-19); ASPARTATE AMINO TRANSFERASE 21 U/L (14-36); BILIRUBIN,DIRECT 0.3 mg/dL (0.0-0.4); BILIRUBIN,TOTAL 0.7 mg/dL (0.2-1.3); BLOOD UREA NITROGEN 16 mg/dL (7-20); CARBON DIOXIDE 27 mmol/L (22-30); CHLORIDE 104 mmol/L (98-107); CREATININE RESULT 0.67 mg/dL (0.52-1.25); GLUCOSE 78 mg/dL (75-110); POTASSIUM 4.4 mmol/L (3.6-5.0); TOTAL PROTEIN 7.3 g/dL (6.3-8.2)
[2016-11-08] MEDS ORDERED: KETOROLAC TROMETHAMINE INJ/PF 30 MG/1 ML SDV IV ONE (21:22)
[2016-11-08] MEDS ORDERED: DEXTROSE 5%-LACTATED RINGERS 1,000 ML IV ONE (21:22)
[2016-11-08] MEDS ORDERED: METOCLOPRAMIDE HCL INJ/PF 10 MG/2 ML SDV IV ONE (21:22)
[2016-11-08 21:26] LABS: ADD ON TESTING BLD IN LAB ACKNOWLEDGE
[2016-11-08 21:40] LABS: C-REACTIVE PROTEIN < 5.0 mg/L (<10.0)
[2016-11-08 22:01] VITALS: BP 101/65
--- NOTE | 2016-11-08 22:10 | RADIOLOGY REPORT (SQ) ---
EXAM DESCRIPTION: ACUTE ABDOMEN SERIES COMPLETED DATE/TIME: 11/08/2016 9:44 pm REASON FOR STUDY: Right lower abd pain, Ileus bowel sounds COMPARISON: None. NUMBER OF VIEWS: Three views. TECHNIQUE: Frontal chest, supine abdomen and upright/decubitus abdomen radiographic images acquired. LIMITATIONS: None. FINDINGS: CHEST: Lungs clear of infiltrates. FREE AIR: None. No abnormal gas collections. BOWEL GAS PATTERN: Nonobstructive pattern. No dilated loops or air fluid levels. CALCIFICATIONS: No suspicious calcifications. HARDWARE: None in the abdomen. SOFT TISSUES: No gross mass or suggestion of organomegaly. BONES: No acute fracture. No worrisome bone lesions. OTHER: No other significant finding. IMPRESSION: NO RADIOGRAPHIC EVIDENCE FOR ACUTE ABDOMINAL DISEASE. TECHNICAL DOCUMENTATION: JOB ID: [id number] [employer]- All Rights Reserved
--- NOTE | 2016-11-08 22:12 | ER Document Report ---
ED GI/ - General Mode of Arrival: Ambulatory Information source: Patient TRAVEL OUTSIDE OF THE [place] IN LAST 30 DAYS: No <BRAULIO HERNANDEZ - Last Filed: 11/08/16 22:13> <KAYLA ASHFORD - Last Filed: 11/08/16 23:01> - General Chief Complaint: Abdominal Pain Stated Complaint: ABDOMINAL PAIN,VOMITING, FEVER Time Seen by Provider: 11/08/16 19:41 Notes: Patient is a 26-year-old female who presents to the emergency department today with complaints of abdominal pain with associated fevers. Patient states she had fevers at home yesterday and was able to control them with Tylenol and ibuprofen however today she has not been able to control them anymore. Patient states she is unable to keep solid foods down. Patient has a history of a right -sided ovarian cysts but she states this pain feels different. Patient is vomiting but denies any diarrhea. (BRAULIO HERNANDEZ) - Related Data Allergies/Adverse Reactions: No Known Allergies Allergy (Verified 11/08/16 18:44) Past Medical History - General Information source: Patient - Social History Smoking Status: Never Smoker Cigarette use (# per day): No Chew tobacco use (# tins/day): No Frequency of alcohol use: None Drug Abuse: None Lives with: Family Family History: Reviewed & Not Pertinent Renal/ Medical History: Reports: Hx Ovarian Cysts Psychiatric Medical History: Reports: Hx Anxiety, Hx Depression Past Surgical History: Reports: Hx Dilation and Curettage, Hx Gynecologic Surgery - D&C - Immunizations Immunizations up to date: Yes Hx Diphtheria, Pertussis, Tetanus Vaccination: Yes <BRAULIO HERNANDEZ - Last Filed: 11/08/16 22:13> Review of Systems - Review of Systems Constitutional: See HPI, Fever EENT: No symptoms reported Cardiovascular: No symptoms reported Respiratory: No symptoms reported Gastrointestinal: See HPI, Abdominal pain, Vomiting. denies: Diarrhea Genitourinary: No symptoms reported Female Genitourinary: No symptoms reported Musculoskeletal: No symptoms reported Skin: No symptoms reported Hematologic/Lymphatic: No symptoms reported Neurological/Psychological: No symptoms reported -: Yes All other systems reviewed and negative <BRAULIO HERNANDEZ - Last Filed: 11/08/16 22:13> Physical Exam <BRAULIO HERNANDEZ - Last Filed: 11/08/16 22:13> <KAYLA ASHFORD - Last Filed: 11/08/16 23:01> - Vital signs Vitals: Temp Pulse Resp BP Pulse Ox 98.6 F 86 18 110/73 99 11/08/16 18:45 11/08/16 18:45 11/08/16 18:45 11/08/16 18:45 11/08/16 18:45 - Notes Notes: Physical Exam: General: Alert, appears well. HEENT: Normocephalic. Atraumatic. PERRL. Extraocular movements intact. Oropharynx clear. Neck: Supple. Non-tender. Respiratory: No respiratory distress. Clear and equal breath sounds bilaterally. Cardiovascular: Regular rate and rhythm. Abdominal: Right sided abdominal tenderness with palpation. No distension. Decreased Bowel Sounds. Back: Non-tender. No deformity or step off. Extremities: Moves all four extremities. Upper extremities: Normal inspection. Normal ROM. Lower extremities: Normal inspection. No edema. Normal ROM. Neurological: Normal cognition. AAOx4. Normal speech. Psychological: Normal affect. Normal Mood. Skin: Warm. Dry. Normal color. (BRAULIO HERNANDEZ) Course - Laboratory Result Diagrams: 11/08/16 19:55 11/08/16 19:55 <BRAULIO HERNANDEZ - Last Filed: 11/08/16 22:13> - Laboratory Result Diagrams: 11/08/16 19:55 11/08/16 19:55 - Diagnostic Test Radiology reviewed: Image reviewed - I reviewed the images, and there is considerable stool in the right colon consistent with constipation., Reports reviewed - Acute abdominal series as read as nonspecific nothing acute. <KAYLA ASHFORD - Last Filed: 11/08/16 23:01> - Re-evaluation Re-evalutation: 11/08/16 22:50 The right colon is full of stool consistent with constipation, and this is where the patient's discomfort is located. The CRP is undetectable and the ESR is 8. White blood cell count is 8100 with 60 segs, 0 bands, 31 lymphs 11/08/16 22:58 I just wanted to see the patient and review the findings, and found that she had done blood in her IV and walked out with her family. The nurse is unaware of this. The take for that room was unaware of this. Another patient personal care attendant states she saw the entire family walking down the hallway a little while ago. (KAYLA ASHFORD) - Vital Signs Vital signs: Temp Pulse Resp BP Pulse Ox 98.1 F 64 14 101/65 96 11/08/16 21:59 11/08/16 21:59 11/08/16 21:59 11/08/16 21:59 11/08/16 21:59 Discharge <BRAULIO HERNANDEZ - Last Filed: 11/08/16 22:13> <KAYLA ASHFORD - Last Filed: 11/08/16 23:01> - Discharge Clinical Impression: Abdominal pain Qualifiers: Abdominal location: right lower quadrant Qualified Code(s): R10.31 - Right lower quadrant pain Constipation Qualifiers: Constipation type: unspecified constipation type Qualified Code(s): K59.00 - Constipation, unspecified Condition: Stable Disposition: ELOPED Scribe Attestation: 11/08/16 22:59 I personally performed the services described in the documentation, reviewed and edited the documentation which was dictated to the scribe in my presence, and it accurately records my words and actions. (KYALA ASHFORD) Scribe Documentation - Scribe Written by Dell:: Dell Olivas, 11/08/2016 acting as scribe for :: Ariela <BRAULIO HERNANDEZ - Last Filed: 11/08/16 22:13>
== END 2016-11-08 23:16 | disposition left against medical advice (07) ==
LOC: ER 18:41
DX: K59.00 Constipation, unspecified (principal); R10.31 Right lower quadrant pain; R10.9 Unspecified abdominal pain; R50.9 Fever, unspecified; R11.10 Vomiting, unspecified; Z87.42 Personal history of other diseases of the female genital tract; Z53.20 Procedure and treatment not carried out because of patient's decision for unspecified reasons
CPT/HCPCS: 99281; 96361; 96375; 96365; 36415; 84702; 85025; 85652; 86140; 80053; 81001; 74022; J1885; J2765; J2405; J7030